=== PATIENT | female | born 1970 | race African-American/Black ===

== ENCOUNTER 2017-10-19 12:34 | Emergency (ER) | payer MEDICAID ==
[~2017-10-19] VITALS: Ht 167.6 cm; Wt 104.3 kg
[2017-10-19 12:45] VITALS: BP 144/82
[2017-10-19 13:11] LABS: Urine WBC None Seen /hpf (0 - 5)
[2017-10-19 13:43] LABS: Urine Bacteria NONE SEEN /hpf (None Seen); Urine Blood Negative /uL (Negative); Urine Specific Gravity 1.008 (1.001-1.035)
[2017-10-19 13:49] LABS: Eosinophils # (auto) 0.2 uL; Mean Corpuscular Hemoglobin 23.7 pg (28.0-32.0); Nucleated Red Blood Cells % 0.2 %; Platelet Count (auto) 227 10^3/uL (140-450)
[2017-10-19 13:53] LABS: Basophils # (auto) 0.1 uL; Basophils % (auto) 0.6 % (0.0-2.0); Eosinophils % (auto) 1.7 % (0.0-7.0); Hematocrit 35.8 % (36.0-46.0); Hemoglobin 11.2 g/dL (12.2-16.2); Lymphocytes # (auto) 1.1 uL; Lymphocytes % (auto) 12.7 % (10.0-50.0); Mean Corpuscular Hgb Conc. 31.4 g/dL (32.0-36.0); Mean Corpuscular Volume 75.4 fL (80.0-100.0); Monocytes # (auto) 0.8 uL; Monocytes % (auto) 8.4 % (0.0-12.0); Neutrophils # (auto) 6.9 uL; Neutrophils % (auto) 76.6 % (37.0-80.0); Red Blood Cells 4.75 10^6/uL (4.0-5.20)
[2017-10-19 14:03] LABS: Red Cell Distribution Width 20.2 % (11.8-14.3)
[2017-10-19 14:10] LABS: Albumin 3.6 g/dL (3.4-5.0); BUN/Creatinine Ratio 12.7; Bilirubin, Total 0.3 mg/dL (0.2-1.0); Calcium 8.8 mg/dL (8.5-10.1); Potassium 3.8 mmol/L (3.5-5.1); Total Protein 8.4 g/dL (6.4-8.2)
[2017-10-19 14:32] LABS: INR 3.46 (0.9-1.15); Partial Thromboplastin Time 47.6 sec (22.64-33.71); Prothrombin Time 38.2 sec (9.37-12.3)
== END 2017-10-19 15:52 | disposition home or self-care (01) ==
LOC: ER 12:34
DX: R79.1 Abnormal coagulation profile (principal); Z88.6 Allergy status to analgesic agent; Z91.040 Latex allergy status
CPT/HCPCS: 36415; 80053; 81001; 81025; 85025; 85610; 85730; 93005